=== PATIENT | female | born 1995 | race Caucasian/White ===

== ENCOUNTER → 2019-01-05 13:59 | Outpatient (CLI) | payer OTHER, SELFPAY ==
--- NOTE | 2019-01-05 14:01 | RAD_ITS ---
STUDY: X-RAY - LEFT KNEE REASON FOR EXAM: Female, 23 years old. Left knee pain TECHNIQUE: 4 view(s) of the knee. COMPARISON: 10/17/2012 FINDINGS: Linear lucent defects of the patella and distal femur are likely sequela of prior surgery, new since 2011. Normal visualized proximal tibia and fibula. Normal proximal tibiofibular articulation. Normal medial femorotibial compartment. Normal lateral femorotibial compartment. Normal patellofemoral articulation. There is a soft tissue prominence in the suprapatellar region suggesting a small volume joint effusion. The soft tissue structures are unremarkable. RAD/Knee 4 or More Views IMPRESSION: Small joint effusion. Apparent operative defects of the patella and distal femur. Electronically Signed: Sarath Dodd MD at 19:56 EST , Service support ,
== END ==
PROVIDERS: Family Provider Pediatrics; PCP Pediatrics; Referring Provider Orthopaedic Surgery; Visit Provider Orthopaedic Surgery
DX: M25.562 Pain in left knee (principal)
CPT/HCPCS: 73564